=== PATIENT | female | born 1955 | race Caucasian/White ===

== ENCOUNTER 2017-09-28 06:50 | Day surgery (SDC) | payer MEDICARE, OTHER ==
[~2017-09-28] VITALS: Ht 165.1 cm; Wt 62.6 kg
[~2017-09-28 06:50] MED LIST: ACYC400 PO; AMOCLA875 PO; AZO1 EACH; CIPR250 PO; ESTR.05TPW; GABA100 PO; HORMONE PATCH; HYDACE5; HYDACE5 PO; IBUP200; IBUP800 PO; Keflex500 MG PO; NAPR220; PERCOGESIC; PHENA200 PO; PRAZ1 PO; RISE5; SULTRIDS PO; [UNRECOGNIZED DRUG - REMARK]
== END 2017-09-28 08:57 | disposition home or self-care (01) ==
LOC: ORSCMMR 06:50
PROVIDERS: Internal Medicine Gastroenterology
PROC: 0DBN8ZX Excision of Sigmoid Colon, Via Natural or Artificial Opening Endoscopic, Diagnostic (ICD-10-PCS; principal; 2017-09-28 08:00)
DX: Z12.11 Encounter for screening for malignant neoplasm of colon (principal); D12.5 Benign neoplasm of sigmoid colon; K63.5 Polyp of colon; K64.8 Other hemorrhoids; K64.4 Residual hemorrhoidal skin tags; M79.7 Fibromyalgia; F17.210 Nicotine dependence, cigarettes, uncomplicated; Z79.899 Other long term (current) drug therapy
CPT/HCPCS: 88305; J7120

== ENCOUNTER → 2019-11-03 | Outpatient (CLI) | payer MEDICARE, OTHER ==
[2019-11-03 19:56] LABS: Appearance, Urine Clear (Clear); Bilirubin, Urine Neg (Neg); Blood, Urine 2+ (Neg); Color, Urine Yellow (P-Yellow); Glucose Qualitative, Urine Neg (Neg); Ketones, Urine Neg (Neg); Leukocyte Esterase, Urine 2+ (Neg); Nitrite, Urine Neg (Neg); Protein, Urine Neg (Neg); Specific Gravity, Urine 1.005 (1.003-1.022); Urobilinogen, Urine NORM (Normal); pH, Urine 6.5 (5.0-8.0)
[2019-11-03 20:33] LABS: Red Blood Cells, Urine 0-2 /hpf (0-2); Squamous Epithelial Cells Few /hpf (Few)
[2019-11-03 20:34] LABS: Bacteria Rare /hpf
== END | disposition home or self-care (01) ==
LOC: LAB SHORT 14:42 → LAB 14:42
PROVIDERS: Family Medicine
DX: N39.0 Urinary tract infection, site not specified (principal)
CPT/HCPCS: 81001; 87086

== ENCOUNTER → 2019-12-08 | Outpatient (CLI) | payer MEDICARE, OTHER ==
[2019-12-08 18:23] LABS: Bilirubin, Urine Neg (Neg); Blood, Urine 4+ (Neg); Glucose Qualitative, Urine Neg (Neg); Ketones, Urine Neg (Neg); Leukocyte Esterase, Urine 2+ (Neg); Nitrite, Urine Neg (Neg); Protein, Urine Neg (Neg); Urobilinogen, Urine NORM (Normal)
[2019-12-08 18:57] LABS: Appearance, Urine Clear (Clear); Color, Urine Yellow (P-Yellow)
[2019-12-08 19:00] LABS: Bacteria Few /hpf; Squamous Epithelial Cells Few /hpf (Few)
== END ==
LOC: LAB 16:14 → LAB SHORT 16:14
PROVIDERS: Nurse Practitioner Family
DX: N39.0 Urinary tract infection, site not specified (principal)
CPT/HCPCS: 81001; 87086

== ENCOUNTER → 2020-08-08 | Outpatient (CLI) | payer MEDICARE, OTHER | END | disposition home or self-care (01) | LOC: LAB 14:56 → LAB SHORT 14:56 | DX: N89.8 Other specified noninflammatory disorders of vagina (principal) | CPT/HCPCS: 87070; 87205 ==

== ENCOUNTER → 2021-11-04 | Outpatient (CLI) | payer MEDICARE, OTHER | END | disposition home or self-care (01) | LOC: LAB SHORT 10:30 → LAB 10:30 | DX: N39.0 Urinary tract infection, site not specified (principal) | CPT/HCPCS: 87086 ==

== ENCOUNTER → 2021-11-11 | Outpatient (CLI) | payer MEDICARE, OTHER | END | disposition home or self-care (01) | LOC: LAB SHORT 17:54 → LAB 17:54 | DX: N39.0 Urinary tract infection, site not specified (principal) | CPT/HCPCS: 87086 ==

== ENCOUNTER 2022-01-06 06:15 | Day surgery (SDC) | payer MEDICARE, OTHER ==
[~2022-01-06] VITALS: Ht 165.1 cm; Wt 66.2 kg
[2022-01-06] MEDS ORDERED: OMEP20ER PO (06:41)
--- NOTE | 2022-01-06 07:00 | NUR ---
01/06/22 0700 Yana Sierra TETRAICANE DROP INSTILLED AT 0641 [facility] 0643
== END 2022-01-06 08:07 | disposition home or self-care (01) ==
LOC: ORSCSDS 06:15
PROVIDERS: Ophthalmology
PROC: 08RK3JZ Replacement of Left Lens with Synthetic Substitute, Percutaneous Approach (ICD-10-PCS; principal; 2022-01-06 07:30)
DX: H25.12 Age-related nuclear cataract, left eye (principal); M79.7 Fibromyalgia; Z79.899 Other long term (current) drug therapy; F17.210 Nicotine dependence, cigarettes, uncomplicated
CPT/HCPCS: J2001; J2250; J3010; J3301; J7040; V2632

== ENCOUNTER 2022-01-15 08:10 | Day surgery (SDC) | payer MEDICARE, OTHER ==
[~2022-01-15] VITALS: Ht 165.1 cm; Wt 66.7 kg
[~2022-01-15 08:10] MED LIST changes: +OMEP20ER PO
== END 2022-01-15 09:52 | disposition home or self-care (01) ==
LOC: ORSCSDS 08:10
PROVIDERS: Ophthalmology
PROC: 08RJ3JZ Replacement of Right Lens with Synthetic Substitute, Percutaneous Approach (ICD-10-PCS; principal; 2022-01-15 09:30)
DX: H25.11 Age-related nuclear cataract, right eye (principal); K21.9 Gastro-esophageal reflux disease without esophagitis
CPT/HCPCS: J2001; J2250; J3010; J3301; J7040; V2632

== ENCOUNTER → 2023-01-14 | Outpatient (CLI) | payer MEDICARE, OTHER | END | disposition home or self-care (01) | LOC: LAB SHORT 10:42 | DX: R82.90 Unspecified abnormal findings in urine (principal) | CPT/HCPCS: 87077; 87086; 87186 ==

== ENCOUNTER → 2023-02-01 | Outpatient (CLI) | payer OTHER | END | disposition home or self-care (01) | LOC: LAB SHORT 17:29 → LAB 17:29 | DX: R82.90 Unspecified abnormal findings in urine (principal) | CPT/HCPCS: 87077; 87086; 87186 ==

== ENCOUNTER 2024-01-22 00:19 | Emergency (ER) | payer OTHER ==
[~2024-01-22] VITALS: Ht 165.1 cm; Wt 72.6 kg
[2024-01-22] MEDS ORDERED: Triamcinolone Inj Susp 40 MG / ML 1ML Vial IM ONE (01:30)
[2024-01-22] MEDS ORDERED: Betamethasone Sod Phos/Acetate 6 MG/ML 5ML VIAL IM ONE (01:40)
[2024-01-22 02:04] VITALS: BP 169/72
== END 2024-01-22 02:04 | disposition home or self-care (01) ==
LOC: ER 00:19
DX: L23.7 Allergic contact dermatitis due to plants, except food (principal); F43.10 Post-traumatic stress disorder, unspecified; F17.200 Nicotine dependence, unspecified, uncomplicated; Z88.8 Allergy status to other drugs, medicaments and biological substances; Z79.899 Other long term (current) drug therapy
CPT/HCPCS: 96372; 99282-25; J0702; J3301

== ENCOUNTER 2024-06-29 13:09 | Day surgery (SDC) | payer OTHER ==
[~2024-06-29] VITALS: Ht 165.1 cm; Wt 67.9 kg
[~2024-06-29 13:09] MED LIST changes: +Lactated Ringer's 1,000 ML IV ONE; +propofoL 50 ML IV ONE
[2024-06-29] MEDS ORDERED: Lactated Ringer's 1,000 ML IV ONE (13:53)
[2024-06-29 15:32] VITALS: BP 126/77
== END 2024-06-29 15:25 | disposition home or self-care (01) ==
LOC: ORSCSDS 13:09
PROVIDERS: Specialist
PROC: 0DJD8ZZ Inspection of Lower Intestinal Tract, Via Natural or Artificial Opening Endoscopic (ICD-10-PCS; principal; 2024-06-29 14:30)
DX: Z12.11 Encounter for screening for malignant neoplasm of colon (principal); Z86.0101 Personal history of adenomatous and serrated colon polyps; K59.09 Other constipation; K64.8 Other hemorrhoids; Z79.899 Other long term (current) drug therapy
CPT/HCPCS: J2704; J7120

== ENCOUNTER → 2024-11-21 | Outpatient (CLI) | payer OTHER ==
[~2024-11-21] MED LIST changes: -Lactated Ringer's 1,000 ML IV ONE; -propofoL 50 ML IV ONE
[2024-11-21 18:09] LABS: Source, Urine Voided
[2024-11-21 19:01] LABS: Appearance, Urine Hazy (Clear); Bilirubin, Urine Neg (Neg); Blood, Urine 2+ (Neg); Color, Urine Yellow (P-Yellow); Glucose Qualitative, Urine Neg (Neg); Ketones, Urine Neg (Neg); Leukocyte Esterase, Urine 3+ (Neg); Nitrite, Urine Pos (Neg); Protein, Urine Neg (Neg); Specific Gravity, Urine 1.015 (1.003-1.022); Urobilinogen, Urine NORM (Normal)
[2024-11-21 19:37] LABS: White Blood Cells, Urine 50-100 /hpf (0-5)
[2024-11-21 19:38] LABS: Bacteria Many /hpf; Mucus Light (0-Heavy); Red Blood Cells, Urine 0-2 /hpf (0-2); Squamous Epithelial Cells Rare /hpf (Few)
[2024-11-21 20:04] LABS: Bacterial Vaginosis PCR Negative (NEGATIVE); Candida Group, PCR NOT DETECTED (NOT DETECT); Candida glabrata-krusei, PCR NOT DETECTED (NOT DETECT)
== END | disposition home or self-care (01) ==
LOC: LAB SHORT 18:06 → LAB 18:06
PROVIDERS: Nurse Practitioner Family
DX: R82.90 Unspecified abnormal findings in urine (principal)
CPT/HCPCS: 81001; 81515; 87077; 87086; 87186

== ENCOUNTER → 2024-12-27 | Outpatient (CLI) | payer OTHER ==
[2024-12-27 12:23] LABS: Source, Urine Clean Catch
[2024-12-27 13:20] LABS: Appearance, Urine Cloudy (Clear); Bilirubin, Urine Neg (Neg); Blood, Urine 4+ (Neg); Color, Urine Yellow (P-Yellow); Glucose Qualitative, Urine Neg (Neg); Ketones, Urine Neg (Neg); Leukocyte Esterase, Urine 3+ (Neg); Nitrite, Urine Pos (Neg); Protein, Urine 2+ (Neg); Urobilinogen, Urine NORM (Normal)
[2024-12-27 13:40] LABS: Bacteria Many /hpf; Squamous Epithelial Cells Mod /hpf (Few); White Blood Cells, Urine TNTC /hpf (0-5)
== END ==
LOC: LAB 12:15 → LAB SHORT 12:15
PROVIDERS: Nurse Practitioner Family
DX: R30.0 Dysuria (principal)
CPT/HCPCS: 81001; 87077; 87086; 87186

== ENCOUNTER 2025-03-21 06:22 | Day surgery (SDC) | payer OTHER ==
[~2025-03-21] VITALS: Ht 165.1 cm; Wt 68.5 kg
[2025-03-21] MEDS ORDERED: ESTRADIOL42.5 GM (06:53)
[2025-03-21] MEDS ORDERED: LINZESS145 MCG (06:54)
[2025-03-21] MEDS ORDERED: NITR.4SL (06:54)
[2025-03-21] MEDS ORDERED: Lactated Ringer's 1,000 ML IV ONE ×2 (07:36→07:44)
[2025-03-21] MEDS ORDERED: propofoL 50 ML IV ONE (07:36)
[2025-03-21 08:31] VITALS: BP 119/78
== END 2025-03-21 08:43 | disposition home or self-care (01) ==
LOC: ORSCSDS 06:22
PROVIDERS: Specialist
PROC: 0DB98ZX Excision of Duodenum, Via Natural or Artificial Opening Endoscopic, Diagnostic (ICD-10-PCS; principal; 2025-03-21 08:00)
PROC: 0DB58ZX Excision of Esophagus, Via Natural or Artificial Opening Endoscopic, Diagnostic (ICD-10-PCS; principal; 2025-03-21 08:00)
PROC: 0DB68ZX Excision of Stomach, Via Natural or Artificial Opening Endoscopic, Diagnostic (ICD-10-PCS; principal; 2025-03-21 08:00)
DX: R10.13 Epigastric pain (principal); K21.9 Gastro-esophageal reflux disease without esophagitis; K29.50 Unspecified chronic gastritis without bleeding; K59.09 Other constipation; K44.9 Diaphragmatic hernia without obstruction or gangrene; L53.9 Erythematous condition, unspecified; Z79.899 Other long term (current) drug therapy
CPT/HCPCS: 88305; 88342; J2704; J7120

== ENCOUNTER → 2025-07-09 | Outpatient (CLI) | payer MEDICARE, OTHER ==
[~2025-07-09] MED LIST changes: +ESTRADIOL42.5 GM; +LINZESS145 MCG; +NITR.4SL
== END ==
LOC: LAB 18:40 → LAB SHORT 18:40
DX: R30.0 Dysuria (principal)
CPT/HCPCS: 87077; 87086; 87186

== ENCOUNTER 2025-07-24 18:36 | Observation (INO) | payer MEDICARE, OTHER ==
[~2025-07-24] VITALS: Ht 165.1 cm; Wt 69.5 kg
[2025-07-24 18:57] LABS: Source, Urine Clean Catch
[2025-07-24 19:00] LABS: Bilirubin, Urine Neg (Neg); Glucose Qualitative, Urine Neg (Neg); Ketones, Urine Neg (Neg); Leukocyte Esterase, Urine 1+ (Neg); Protein, Urine Neg (Neg); Specific Gravity, Urine 1.010 (1.003-1.022); Urobilinogen, Urine NORM (Normal)
[2025-07-24 19:01] LABS: BASOPHILS ABSOLUTE AUTO 0.07 K/mm3 (0.00-0.23); BASOPHILS PERCENT AUTO 1 % (0-2); EOSINOPHILS ABSOLUTE AUTO 0.15 K/mm3 (0.00-0.68); EOSINOPHILS PERCENT AUTO 2 % (0-6); Hematocrit 47.6 % (33.0-51.0); Hemoglobin 15.4 g/dL (11.5-16.0); IMMATURE GRAN ABSOLUTE AUTO 0.02 K/mm3 (0.00-0.10); IMMATURE GRAN PERCENT AUTO 0 % (0-1); LYMPHOCYTES ABSOLUTE AUTO 2.27 K/mm3 (0.84-5.20); LYMPHOCYTES PERCENT AUTO 29 % (21-46); MONOCYTES ABSOLUTE AUTO 0.56 K/mm3 (0.16-1.47); MONOCYTES PERCENT AUTO 7 % (4-13); Mean Corpuscular HGB Conc 32.4 g/dL (31.5-36.5); Mean Corpuscular Volume 93 fL (80-100); NEUTROPHILS ABSOLUTE AUTO 4.74 K/mm3 (1.96-9.15); NEUTROPHILS PERCENT AUTO 61 % (41-73); NRBC ABSOLUTE 0.00 K/mm3 (0.00-0.02); NRBC Auto 0.0 /100 WBC (0.0-0.2); Platelet Count 381 K/mm3 (150-400); RDW Coefficient Variation 12.1 % (11.7-14.2); RDW Standard Deviation 42.4 fL (35.1-46.3)
[2025-07-24 19:07] LABS: Color, Urine Pale Yellow (P-Yellow)
[2025-07-24] MEDS ORDERED: HYDROmorphone HCl/Pf 1MG SYR IV ONE (19:50)
[2025-07-24] MEDS ORDERED: Ketorolac Tromethamine 15mg Vial IV ONE (20:25)
[2025-07-24 22:04] LABS: Alanine Aminotransfer (ALT/SGP 23.0 U/L (12-78); Albumin, Blood 4.1 g/dL (3.4-5.0); Albumin/Globulin Ratio 1.0 (0.8-1.8); Anion Gap 10.0 mmol/L (3-11); Aspartate Aminotrans (AST/SGOT 24.0 U/L (12-37); Bilirubin, Total 0.6 mg/dL (0.1-1.0); Blood Urea Nitrogen 14.0 mg/dL (8-24); CO2, Blood 28.0 mmol/L (21-32); Calcium, Blood 10.3 mg/dL (8.5-10.1); Chloride, Blood 106.0 mmol/L (98-108); Creatinine, Blood 0.98 mg/dL (0.40-1.00); Globulin, Blood 4.0 g/dL (2.2-4.0); Glucose, Blood 95.0 mg/dL (70-99); Potassium, Blood 3.9 mmol/L (3.5-5.5); Sodium, Blood 140.0 mmol/L (136-145); Total Protein, Blood 8.1 g/dL (6.4-8.2)
[2025-07-24] MEDS ORDERED: Metoclopramide HCl 5MG / ML 2ML Vial IV ONE (22:30)
[2025-07-24] MEDS ORDERED: NITR100CA PO (23:48)
[2025-07-24] MEDS ORDERED: ONDA4ODT MM (23:48)
[2025-07-24] MEDS ORDERED: LIDO700A20 TOP (23:48)
[2025-07-24] MEDS ORDERED: Nitrofurantoin/Nitrofuran Mac 100 MG Cap PO ONE (23:50)
[2025-07-24] MEDS ORDERED: Lidocaine 4% 1 Patch TOP ONE (23:50)
[2025-07-24] MEDS ORDERED: RX Prepack 2 Tabs Ondansetron ODT 4MG UD ONE (23:55)
[2025-07-24] MEDS ORDERED: Ondansetron HCl 2 MG / ML 2ML Vial IV ONE (23:55)
[2025-07-25] MEDS ORDERED: DiphenhydrAMINE HCl 50 MG/ML 1ML Vial IV ONE (00:15)
[2025-07-25] MEDS ORDERED: Ondansetron HCl 2 MG / ML 2ML Vial IV PRN (01:55)
[2025-07-25] MEDS ORDERED: FLU VACC TS2025(65UP)/MF59C/PF 45 MCG/0.5 ML SYRINGE IM SCH (01:55)
[2025-07-25] MEDS ORDERED: NS 1,000 ML IV ONE (01:55)
[2025-07-25] MEDS ORDERED: FentaNYL Citrate 50 MCG/ML 2 ML Injection IV PRN (02:00)
[2025-07-25] MEDS ORDERED: CefTRIAXone Sodium 1,000 MG in NS 100 ML IV SCH (02:14)
[2025-07-25] MEDS ORDERED: Pantoprazole Sodium 40 MG Injection IV SCH (02:18)
[2025-07-25 03:08] VITALS: BP 150/75
[2025-07-25] MEDS ORDERED: LOSA25 PO (03:13)
[2025-07-25] MEDS ORDERED: NS 250 ML IV PRN (03:25)
[2025-07-25] MEDS ORDERED: DiphenhydrAMINE HCl 50 MG/ML 1ML Vial IV SCH (03:40)
--- NOTE | 2025-07-25 04:37 | NUR ---
NEW ADMIT / HOSPITALIST CONTACT PT ARRIVED TO ROOM AT 0259--A/OX4. WALKS WITH A CANE UNASSISTED. PT DID NOT HAVE CODE STATUS ORDERED UPON ARRIVAL. PT REQUESTED TO BE DNR. PT STATES HAS A POLST AT HOME. PT CAME TO ER WITH N&V WITH FLANK PAIN. PT UA POSITIVE FOR UTI, CULTURE PENDING. PT HAD ABD CT WITH CONTRAST--AFTER CT PT'S THROAT BECAME SWOLLEN. UPON ARRIVAL PT REPORTS NAUSEA IS IMPROVED BUT THROAT STILL FEELS SWOLLEN AND DOES NOT TOLERATE LYING FLAT; PT STATED "IT FEELS LIKE I AM SUFFOCATING" VITALS ARE WNL AND PT BREATHING IS EVEN AND UNLABORED. PT HAVING PAIN IN BACK. PT SHARED SHE RECENTLY LOST HER . CURRENTLY TWO OF HER CHILDREN ARE STAYING WITH HER--PT FEELS SUPPORTED/CARED FOR. NO SAFETY CONCERNS AT HOME. PT DENIES BEING AN EVERY DAY SMOKER. PT QUIT SMOKING A FEW YEARS AGO. PT DENIES NEED FOR NICOTINE REPLACEMENT. UNABLE TO COMPLETE MED REC--PT REPORTS SHE TAKES [place] TWICE A DAY, 1/2 LOW DOSE BUT UNSURE ABOUT THE DOSE. SON TO BRING MEDICATION TOMORROW. CALLED HOSPITALIST TO REPORT CONCERNS ABOUT CONTINUED SWOLLEN THROAT AND CODE STATES. SPOKE WITH DR MENA WHO ORDERED 20MG IV PEPICID TOTAL OF 4 DOSES, 25MG IV BENADRYL FOR TOTAL OF 4 DOSES, ONE ONE DOSED OF SOLUMEDROL 60MG IV TO BE GIVEN 6 HOURS AFTER PREVIOUS DOSE GIVEN IN THE ED--THIS DOSE TO BE GIVEN AT 0638. GAVE ORDER FOR DNR CODE STATUS AND DIET IS NPO WITH SIPS AND CHIPS FOR NOW.
[2025-07-25 05:28] LABS: BASOPHILS ABSOLUTE AUTO 0.02 K/mm3 (0.00-0.23); BASOPHILS PERCENT AUTO 0 % (0-2); EOSINOPHILS ABSOLUTE AUTO 0.00 K/mm3 (0.00-0.68); EOSINOPHILS PERCENT AUTO 0 % (0-6); Hematocrit 45.4 % (33.0-51.0); Hemoglobin 14.8 g/dL (11.5-16.0); IMMATURE GRAN ABSOLUTE AUTO 0.02 K/mm3 (0.00-0.10); IMMATURE GRAN PERCENT AUTO 0 % (0-1); LYMPHOCYTES ABSOLUTE AUTO 0.82 K/mm3 (0.84-5.20); LYMPHOCYTES PERCENT AUTO 9 % (21-46); MONOCYTES ABSOLUTE AUTO 0.07 K/mm3 (0.16-1.47); MONOCYTES PERCENT AUTO 1 % (4-13); Mean Corpuscular HGB Conc 32.6 g/dL (31.5-36.5); Mean Corpuscular Volume 93 fL (80-100); NEUTROPHILS ABSOLUTE AUTO 7.93 K/mm3 (1.96-9.15); NEUTROPHILS PERCENT AUTO 90 % (41-73); NRBC ABSOLUTE 0.00 K/mm3 (0.00-0.02); NRBC Auto 0.0 /100 WBC (0.0-0.2); Platelet Count 355 K/mm3 (150-400); RDW Coefficient Variation 12.2 % (11.7-14.2); RDW Standard Deviation 42.4 fL (35.1-46.3)
[2025-07-25 05:58] LABS: Alanine Aminotransfer (ALT/SGP 20.0 U/L (12-78); Albumin, Blood 3.8 g/dL (3.4-5.0); Albumin/Globulin Ratio 1.0 (0.8-1.8); Anion Gap 9.0 mmol/L (3-11); Aspartate Aminotrans (AST/SGOT 16.0 U/L (12-37); Bilirubin, Total 0.7 mg/dL (0.1-1.0); Blood Urea Nitrogen 16.0 mg/dL (8-24); CO2, Blood 27.0 mmol/L (21-32); Calcium, Blood 9.5 mg/dL (8.5-10.1); Chloride, Blood 105.0 mmol/L (98-108); Creatinine, Blood 0.99 mg/dL (0.40-1.00); Globulin, Blood 3.8 g/dL (2.2-4.0); Glucose, Blood 151.0 mg/dL (70-99); Potassium, Blood 4.3 mmol/L (3.5-5.5); Sodium, Blood 137.0 mmol/L (136-145); Total Protein, Blood 7.6 g/dL (6.4-8.2)
[2025-07-25 07:29] VITALS: BP 117/76
[2025-07-25] MEDS ORDERED: Ketorolac Tromethamine 15mg Vial IV PRN (08:25)
[2025-07-25] MEDS ORDERED: Enoxaparin 40 MG/0.4 ML SYR SC SCH (09:00)
[2025-07-25 12:28] VITALS: BP 125/76
--- NOTE | 2025-07-25 14:09 | NUR ---
Pt. is awake and sitting up on the side of her bed when she welcomes my visit. Pt. is pleasant. Facilitated a life review and listen with emapthy and interest. Consider matters of family and raheel. Pt. displayed evidence of bein encouraged. Prayed with the Pt. Pt. verbalized gratitude for the spiritual care visit.
--- NOTE | 2025-07-25 17:03 | NUR ---
PT DISCHARGED HOME TODAY. EDUCATION ABOUT NEW MEDICATIONS AND F/U APPOINTMENTS WENT OVER WITH PT. PT VERBALIZED UNDERSTANDING. PT WAS TAKEN OUT VIA W/C BY SON.
== END 2025-07-25 16:54 | disposition home or self-care (01) ==
LOC: ER 18:36 → MEDS 18:37 → ERHOLD 18:37 → MEDS 07-25 02:57
PROVIDERS: Emergency Medicine; ADMIT Internal Medicine
DX: R11.2 Nausea with vomiting, unspecified (principal); R10.A1 Flank pain, right side; R82.81 Pyuria; E83.52 Hypercalcemia; F17.210 Nicotine dependence, cigarettes, uncomplicated; Z88.8 Allergy status to other drugs, medicaments and biological substances
CPT/HCPCS: 36415; 70551; 74177; 80053; 81001; 82330; 83605; 83880; 85025; 87086; 96361; 96365; 96372; 96374-59; 96375; 96376; 99285-25; A9270; G0378; J0696; J1171; J1200; J1650; J1885; J2470; J2765; J2919; J3010; J7030; Q9967